=== PATIENT | male | born 1990 | race Asian ===

== ENCOUNTER → 2024-05-03 | Day surgery (SDC) | payer OTHER ==
[~2024-05-03] MED LIST: ACETAMINOPHEN/CODEINE 300MG - 30MG TAB ONE; BUPIVACAINE 0.25% 30ML SDV ONE; IBUPROFEN200 MG PO
[2024-05-03] MEDS: LACTATED RINGER'S 1,000 ML ONE (06:40)
[2024-05-03 10:15] VITALS: BP 120/76; PULSE 68; RESP 18; O2SAT 98
== END | disposition home or self-care (01) ==
LOC: OR 05:20
PROVIDERS: ATTEND Surgery
DX: S20.20XA Contusion of thorax, unspecified, initial encounter (principal); X58.XXXA Exposure to other specified factors, initial encounter; Z01.810 Encounter for preprocedural cardiovascular examination; Z79.1 Long term (current) use of non-steroidal anti-inflammatories (NSAID)
CPT/HCPCS: 21501; 87071; 87075; 87205; 93005; J7121